=== PATIENT | male | born 1980 | race Two or more races ===

== ENCOUNTER → 2021-02-19 | Emergency (ER) | payer MEDICAID ==
[~2021-02-19] VITALS: Ht 172.7 cm; Wt 63.3 kg
[~2021-02-19] MED LIST: insulin regular, human 10 units/0.1 ml syringe SQ ONE
[2021-02-19 03:48] VITALS: BP 133/92
== END ==
LOC: ER 03:48
DX: E11.9 Type 2 diabetes mellitus without complications (principal); Z02.89 Encounter for other administrative examinations
CPT/HCPCS: 82948; 96372; 99283; J1815